=== PATIENT | male | born 1970 ===

== ENCOUNTER → 2019-10-14 15:57 | Outpatient (CLI) | payer BC, SELFPAY ==
--- NOTE | ~2019-10-14 | XR_ITS ---
XR lumbar spine 6V w bending 10/14/2019 16:23 Indication: Low back pain Procedure: 8 views lumbar spine including flexion/extension views Comparison: No prior studies for comparison. Findings: There is near complete loss of disc height at L5-S1 with vacuum phenomenon. There are endpl ate degenerative changes ventrally. There are facet hypertrophic changes at L5-S1. No significant alt eration of alignment with flexion/extension. No fracture or traumatic malalignment. Mild dextrocurvat ure of the lumbar spine centered at L2. Sacral foramen are symmetric. Impression: 1: Moderate spondylosis at L5-S1. Reviewed, dictated and finalized at location A. [employer] CASE MANAGER Impression: 1: Moderate spondylosis at L5-S1.
== END ==
PROVIDERS: Visit Provider Nurse Practitioner Family
DX: M47.896 Other spondylosis, lumbar region (principal)
CPT/HCPCS: 72114

== ENCOUNTER → 2020-06-07 10:58 | Outpatient (CLI) | payer BC, SELFPAY ==
--- NOTE | ~2020-06-07 | MR_ITS ---
EXAMINATION: MR lumbar spine wo con DATE: 06/07/2020 12:06 INDICATION: Lumbar radiculopathy. TECHNIQUE: Magnetic resonance imaging (MRI) of the lumbar spine was performed without intravenous con trast. Sequences included sagittal T2-weighted FSE, sagittal T2-weighted FS FSE, sagittal T1-weighted FSE, and axial T2-weighted FSE. COMPARISON: Lumbar spine MRI 03/27/2015 FINDINGS: There is 3 mm retrolisthesis of L2 on L3 and 4 mm retrolisthesis of L5 on S1. Vertebral bod y heights are normal. There is mildly decreased disc height at L2-L3 and L3-L4 and severely decreased disc height at L5-S1. The distal spinal cord signal intensity is normal. The conus medullaris is at L1. The following disc levels are specifically discussed: L1-L2: There is a central protrusion. There is mild bilateral facet joint osteoarthritis. There is no neural foraminal stenosis. There is no central canal stenosis. L2-L3: The disc is bulging and has an annular fissure. There is no facet joint osteoarthritis. There is mild bilateral neural foraminal stenosis. There is mild central canal stenosis. L3-L4: The disc is bulging and has an annular fissure. There is mild right facet joint osteoarthritis . There is moderate bilateral neural foraminal stenosis. There is mild central canal stenosis. L4-L5: The disc is bulging and has an annular fissure. There is mild bilateral facet joint osteoarthr itis. There is mild bilateral neural foraminal stenosis. There is mild central canal stenosis. L5-S1: The disc is bulging and has an annular fissure. There is mass effect on the right S1 nerve mackenzie t in right lateral recess. There is moderate bilateral facet joint osteoarthritis. There is moderate bilateral neural foraminal stenosis. There is mild central canal stenosis. IMPRESSION: 1. Severe lower lumbar spondylosis, worsened from 03/27/2015. Reviewed, dictated and finalized at location A.
== END ==
PROVIDERS: Visit Provider Nurse Practitioner Adult Health
DX: M54.16 Radiculopathy, lumbar region (principal); M47.816 Spondylosis without myelopathy or radiculopathy, lumbar region
CPT/HCPCS: 72148